=== PATIENT | male | born 1975 | race Caucasian/White ===

== ENCOUNTER 2018-11-09 08:44 | Inpatient (IN) | payer MEDICAID, OTHER | END 2018-11-12 16:32 | disposition home or self-care (01) | LOC: WEST WING 11-11 08:00 → ER 08:44 → OVERFLOW 15:26 → WEST WING 17:05 | PROC: 0DJ08ZZ Inspection of Upper Intestinal Tract, Via Natural or Artificial Opening Endoscopic (ICD-10-PCS; principal; 2018-11-10 09:41) | DX: K92.2 Gastrointestinal hemorrhage, unspecified (principal); R07.9 Chest pain, unspecified ==